=== PATIENT | female | born 1960 | race African-American/Black ===

== ENCOUNTER 2016-06-20 01:04 | Emergency (ER) | payer MEDICAID, OTHER ==
[2016-06-20] MEDS ORDERED: BUPIVACAINE HCL 0.5 % INJ/PF 30 ML SDV INJ ONE (01:42)
--- NOTE | 2016-06-20 01:48 | ER Document Report ---
ED Oral Problem - General Chief Complaint: Toothache Stated Complaint: LEFT JAW PAIN Notes: patient is a 55 year old female p/w toothache for 3 days. Patient states that she has old silver fillings from childhood and when they fall out she tends to have severe tooth pain. She states that she has had pain along the left lower part of her jaw, able to tolerate PO, denies fever, chills, foul odor, driangange, dysphagia, muffled speech or drooling. PMH: HTN, h/o MRSA cellulitis, asthma, migraines, post herpetic neuralgia PSH: none SH: denies tobacco, etoh, drug use no PCP, on medicaid TRAVEL OUTSIDE OF THE [place] IN LAST 30 DAYS: No - Related Data Allergies/Adverse Reactions: metronidazole [From Flagyl] Allergy (Verified 06/20/16 01:21) Metronidazole HCl [From Flagyl] Allergy (Verified 06/20/16 01:21) sulfamethoxazole [From Septra DS] Allergy (Verified 06/20/16 01:21) trimethoprim [From Septra DS] Allergy (Verified 06/20/16 01:21) Past Medical History - General Last Menstrual Period: n/a - Social History Smoking Status: Never Smoker Cigarette use (# per day): No Chew tobacco use (# tins/day): No Frequency of alcohol use: None Drug Abuse: None Family History: Reviewed & Not Pertinent Patient has suicidal ideation: No Patient has homicidal ideation: No - Past Medical History Cardiac Medical History: Reports: Hx Hypertension Pulmonary Medical History: Reports: Hx Asthma Renal/ Medical History: Denies: Hx Peritoneal Dialysis - Immunizations Hx Diphtheria, Pertussis, Tetanus Vaccination: No Review of Systems - Review of Systems Constitutional: No symptoms reported EENT: See HPI Cardiovascular: No symptoms reported Respiratory: No symptoms reported Gastrointestinal: No symptoms reported Genitourinary: No symptoms reported Female Genitourinary: No symptoms reported Musculoskeletal: No symptoms reported Skin: No symptoms reported Hematologic/Lymphatic: No symptoms reported Neurological/Psychological: No symptoms reported Physical Exam - Vital signs Vitals: Temp Pulse Resp BP Pulse Ox 97.7 F 69 20 152/73 H 99 06/20/16 01:19 06/20/16 01:19 06/20/16 01:19 06/20/16 01:19 06/20/16 01:19 - HEENT Head: Normocephalic Eyes: Normal Conjunctiva: Normal Eyelashes: Normal Pupils: PERRL Ears: Normal External canal: Normal Tympanic membrane: Normal Sinus: Normal. No: Swelling, Tenderness Nasal: Normal Mouth/Lips: Caries, Dental fracture Mucous membranes: Normal Teeth diagram: 1 - pain with evidence of dental frature and caries 2 - dental caries Pharynx: Normal. No: Peritonsillar abscess, Retropharyngeal abscess, Potential airway comprom. Neck: Normal, Other - no evidence of ludwigs angina - Respiratory Respiratory status: No respiratory distress Chest status: Nontender Breath sounds: Normal Chest palpation: Normal - Cardiovascular Rhythm: Regular Heart sounds: Normal auscultation, S1 appreciated, S2 appreciated Gallop: None auscultated Pulses: Normal: Radial - Neurological Neuro grossly intact: Yes Cognition: Normal Orientation: AAOx4 Lorimor Coma Scale Eye Opening: Spontaneous Lorimor Coma Scale Verbal: Oriented Lorimor Coma Scale Motor: Obeys Commands Jana Coma Scale Total: 15 - Skin Skin Temperature: Warm Skin Moisture: Dry Skin Color: Normal Skin Turgor: Elastic Course - Re-evaluation Re-evalutation: 06/20/16 02:08 patient is a 55 year old female who is HDS, NAD and afebrile with toothache, no evidence of peridontal abscess, peritonsilar abscess or retropharyngeal abscess. I performed a peridontal block with 5ml of 0.5% sensorcaine to which the patient had full relief of her symptoms. She has received PO pcn VK and can f/u with dentist - Vital Signs Vital signs: Temp Pulse Resp BP Pulse Ox 97.7 F 69 18 152/73 H 99 06/20/16 01:28 06/20/16 01:28 06/20/16 01:28 06/20/16 01:28 06/20/16 01:28 Discharge - Discharge Clinical Impression: Toothache Condition: Good Disposition: HOME, SELF-CARE Instructions: Penicillin V K ([facility]), Oral Narcotic Medication ([facility]), Toothache ( [facility]), [facility] Additional Instructions: Please be sure to follow up with a dentist in 7-10 days Prescriptions: Oxycodone HCl/Acetaminophen [Percocet 5-325 mg Tablet] 1 tab PO Q6HP PRN #15 tablet PRN Reason: Penicillin V Potassium [Penicillin Vk 500 mg Tablet] 500 mg PO BID 7 Days Forms: Elevated Blood Pressure Referrals: DONNIE SANCHEZ MD [Primary Care Provider] - Follow up as needed
[2016-06-20] MEDS ORDERED: PENICILLIN V POTASSIUM 500 MG TABLET PO ONE (02:11)
[2016-06-20 02:23] VITALS: BP 148/82
== END 2016-06-20 02:23 | disposition home or self-care (01) ==
LOC: ER 01:04
PROC: 3E0T3BZ Introduction of Anesthetic Agent into Peripheral Nerves and Plexi, Percutaneous Approach (ICD-10-PCS; principal; 2016-06-20)
DX: K08.89 Other specified disorders of teeth and supporting structures (principal); K02.9 Dental caries, unspecified; I10 Essential (primary) hypertension; J45.909 Unspecified asthma, uncomplicated; Z88.1 Allergy status to other antibiotic agents; Z86.14 Personal history of Methicillin resistant Staphylococcus aureus infection
CPT/HCPCS: 99282; 64400; J3490

== ENCOUNTER 2017-01-12 18:58 | Emergency (ER) | payer MEDICAID ==
[2017-01-12 19:34] VITALS: BP 170/81
[2017-01-12] MEDS ORDERED: PENICILLIN V POTASSIUM 500 MG TABLET PO ONE (21:54)
[2017-01-12] MEDS ORDERED: HYDROCODONE/ACETAMINOPHEN 5-325 MG 6 TAB/DSPK PO PRN (21:54)
--- NOTE | 2017-01-12 21:56 | ER Document Report ---
HPI - HPI Patient complains to provider of: toothache Onset: Other - 2 days Onset/Duration: Persistent Quality of pain: Achy Pain Level: 5 Context: Patient states that a filling fell out of 1 of her cavities and has been giving her pain for the past 2 days. Patient states pain radiates into her right jaw and into her ear. Associated Symptoms: Other - Dental pain. denies: Fever Exacerbated by: Denies Relieved by: Denies Similar symptoms previously: Yes Recently seen / treated by doctor: No - ROS ROS below otherwise negative: Yes Systems Reviewed and Negative: Yes All other systems reviewed and negative - CONSTITUTIONAL Constitutional: REPORTS: Chills. DENIES: Fever - EENT Notes: Dental pain - RESPIRATORY Respiratory: DENIES: Coughing - GASTROINTESTINAL Gastrointestinal: DENIES: Nausea, Patient vomiting - REPRODUCTIVE Reproductive: DENIES: : - MUSCULOSKELETAL Musculoskeletal: DENIES: Back Pain, Neck Pain - DERM Skin Color: Normal Skin Problems: None Past Medical History - General Information source: Patient - Social History Smoking Status: Never Smoker Frequency of alcohol use: None Drug Abuse: None Occupation: Customer service Family History: Reviewed & Not Pertinent Patient has suicidal ideation: No Patient has homicidal ideation: No - Past Medical History Cardiac Medical History: Reports: Hx Hypertension Pulmonary Medical History: Reports: Hx Asthma Renal/ Medical History: Denies: Hx Peritoneal Dialysis Surgical Hx: Negative - Immunizations Hx Diphtheria, Pertussis, Tetanus Vaccination: No Vertical Provider Document - CONSTITUTIONAL Agree With Documented VS: Yes Exam Limitations: No Limitations General Appearance: WD/WN, No Apparent Distress - INFECTION CONTROL TRAVEL OUTSIDE OF THE [place] IN LAST 30 DAYS: No - HEENT HEENT: Atraumatic, Normocephalic. negative: Pharyngeal Exudate, Pharyngeal Tenderness, Pharyngeal Erythema, Tympanic Membrane Red, Tympanic Membrane Bulging Mouth Diagram: 1 - Dental caries, dental fracture, no gingival swelling, no trismus, no potential airway compromise - NECK Neck: Normal Inspection, Supple. negative: Lymphadenopathy-Left, Lymphadenopathy-Right - RESPIRATORY Respiratory: Breath Sounds Normal, No Respiratory Distress O2 Sat by Pulse Oximetry: 97 - CARDIOVASCULAR Cardiovascular: Regular Rate, Regular Rhythm, No Murmur - MUSCULOSKELETAL/EXTREMETIES Musculoskeletal/Extremeties: MAEW - NEURO Level of Consciousness: Awake, Alert, Appropriate Motor/Sensory: No Motor Deficit - DERM Integumentary: Warm, Dry, No Rash Course - Vital Signs Vital signs: Temp Pulse Resp BP Pulse Ox 98.5 F 68 16 170/81 H 97 01/12/17 19:32 01/12/17 19:32 01/12/17 19:32 01/12/17 19:32 01/12/17 19:32 Discharge - Discharge Clinical Impression: Hx of essential hypertension, Toothache Condition: Stable Disposition: HOME, SELF-CARE Instructions: Oral Narcotic Medication ([facility]), Penicillin V K ([facility]), Toothache ( [facility]) Additional Instructions: Return immediately for any new or worsening symptoms Followup with your dental care provider, call tomorrow to make a followup appointment Prescriptions: Hydrocodone/Acetaminophen [Dania 5-325 Tablet] 1 each PO Q4 PRN #10 tablet PRN Reason: Penicillin V Potassium [Penicillin Vk 500 mg Tablet] 500 mg PO BID #20 tablet Referrals: [facility] [Provider Group] - Follow up tomorrow
== END 2017-01-12 22:11 | disposition home or self-care (01) ==
LOC: ER 18:58
DX: K02.9 Dental caries, unspecified (principal); K08.89 Other specified disorders of teeth and supporting structures; I10 Essential (primary) hypertension; R68.83 Chills (without fever); J45.909 Unspecified asthma, uncomplicated
CPT/HCPCS: 99282; J3490

== ENCOUNTER 2017-01-31 07:07 | Emergency (ER) | payer MEDICAID ==
--- NOTE | 2017-01-31 07:45 | ER Document Report ---
HPI - HPI Patient complains to provider of: recurrent dental abscess Onset: This morning Onset/Duration: Gradual Pain Level: 3 Context: 56 yo had dental infection which subsided with penicillin prescrbied by [employer] MANAGER in [facility] ER 2 weeks ago> woke up this morning with swelling again after the pain started yesterday. No fever. Has not seen dentist yet to get the tooth pulled. Associated Symptoms: None Exacerbated by: Denies Relieved by: Other - penicillin Similar symptoms previously: Yes Recently seen / treated by doctor: Yes - ROS ROS below otherwise negative: Yes Systems Reviewed and Negative: Yes All other systems reviewed and negative - REPRODUCTIVE Reproductive: DENIES: : - DERM Skin Color: Normal Past Medical History - General Information source: Patient - Social History Smoking Status: Never Smoker Frequency of alcohol use: None Drug Abuse: None Occupation: [employer] Lives with: Family Family History: Reviewed & Not Pertinent - Past Medical History Cardiac Medical History: Reports: Hx Hypertension Pulmonary Medical History: Reports: Hx Asthma Renal/ Medical History: Denies: Hx Peritoneal Dialysis Surgical Hx: Negative - Immunizations Hx Diphtheria, Pertussis, Tetanus Vaccination: No Vertical Provider Document - CONSTITUTIONAL Agree With Documented VS: Yes Exam Limitations: No Limitations General Appearance: No Apparent Distress - INFECTION CONTROL TRAVEL OUTSIDE OF THE [place] IN LAST 30 DAYS: No - HEENT HEENT: Normocephalic Mouth Diagram: 1 - abscess, molars decayed with filling - NECK Neck: Supple. negative: Lymphadenopathy-Left, Lymphadenopathy-Right - RESPIRATORY Respiratory: Breath Sounds Normal, No Respiratory Distress O2 Sat by Pulse Oximetry: 99 - CARDIOVASCULAR Cardiovascular: Regular Rate, Regular Rhythm - NEURO Level of Consciousness: Awake, Alert Course - Vital Signs Vital signs: Temp Pulse Resp BP Pulse Ox 98.2 F 78 20 164/77 H 99 01/31/17 07:09 01/31/17 07:09 01/31/17 07:09 01/31/17 07:09 01/31/17 07:09 Discharge - Discharge Clinical Impression: Dental abscess Condition: Good Disposition: HOME, SELF-CARE Instructions: Dental Infection or Abscess ([facility]), Penicillin V K ([facility]), Toothache ([facility]) Additional Instructions: warm compress see the dentist to er any concerns Please complete the patient satisfaction survey if you get one, and return it.. If you do not receive a survey, then you can go to the [facility] website, [email or web address] and place your comments about your very good care. Thank you very much. It was a pleasure being your medical provider today. Prescriptions: Ibuprofen [Motrin 800 mg Tablet] 800 mg PO Q8HP PRN #30 tablet PRN Reason: Penicillin V Potassium [Penicillin Vk 500 mg Tablet] 500 mg PO QID #40 tablet Referrals: CARLOS MCKENNA FNP [Primary Care Provider] - Follow up as needed
[2017-01-31] MEDS ORDERED: PENICILLIN V POTASSIUM 500 MG TABLET PO ONE (07:58)
[2017-01-31] MEDS ORDERED: IBUPROFEN 800 MG TABLET PO ONE (08:02)
[2017-01-31 08:27] VITALS: BP 136/78
== END 2017-01-31 08:20 | disposition home or self-care (01) ==
LOC: ER 07:07
DX: K04.7 Periapical abscess without sinus (principal); M79.89 Other specified soft tissue disorders
CPT/HCPCS: 99282; J3490 ×2